=== PATIENT | female | born 1970 | race Caucasian/White ===

== ENCOUNTER 2017-06-26 12:17 | Outpatient (CLI) | payer OTHER ==
[2017-06-26 13:31] LABS: #Basophils 0.1 thou/uL (0.0-0.2); #Eosinphils 0.2 thou/uL (0.0-0.7); #Lymphocytes 2.6 thou/uL (1.20-3.40); #Monocytes 0.4 thou/uL (0.11-0.59); #Neutrophils 3.4 thou/uL (1.40-6.50); %Eosinophils 2.7 % (0.0-10.0); %Monocytes 5.9 % (0.0-10.0); Hematocrit 40.8 % (36.0-47.0); Mean Platelet Volume 6.2 fL (7.4-10.4); Red Blood Cell (RBC) Count 4.38 mill/uL (4.20-5.40); White Blood Cell (WBC) Count 6.5 thou/uL (4.8-10.8)
[2017-06-26 13:47] LABS: Hemoglobin A1c 4.9 % (4.0-6.0)
[2017-06-26 13:56] LABS: Anion Gap 10 mmol/L (10-20); BUN (Urea Nitrogen) 11 mg/dL (7.0-18.7); Calc. Creatinine Clearance 0 mL/min (70-130); Calcium 9.1 mg/dL (7.8-10.44); Carbon Dioxide 32 mmol/L (22-29); Chloride 104 mmol/L (98-107); Estimated GFR-MDRD 88
== END 2017-06-26 12:18 | disposition home or self-care (01) ==
LOC: LABBT 12:17
PROVIDERS: ATTEND Specialist
DX: Z01.812 Encounter for preprocedural laboratory examination (principal); N61.1 Abscess of the breast and nipple
CPT/HCPCS: 80048; 83036; 85025

== ENCOUNTER 2017-06-29 09:22 | Day surgery (SDC) | payer OTHER ==
[2017-06-26 12:42] VITALS: BMI 26.9
[~2017-06-29 09:22] MED LIST: Dexamethasone 20 MG/5 ML VIAL ONE; Lidocaine 1% PF 5 ML VIAL ONE; Ondansetron HCl/PF 4 MG/2 ML Vial ONE; Propofol 200 MG/20 ML VIAL ONE
[2017-06-29] MEDS ORDERED: CEFAZOLIN/Water 2 GM/20 ML SYRINGE ONE (09:47)
[2017-06-29] MEDS ORDERED: Ketorolac Tromethamine 30 MG/ML VIAL ONE (09:47)
[2017-06-29] MEDS ORDERED: Midazolam HCl 2 mg/2 ml Vial ONE ×2 (10:56→11:12)
[2017-06-29] MEDS ORDERED: Fentanyl 100 MCG/2 ML VIAL ONE (11:12)
[2017-06-29] MEDS ORDERED: Bupivacaine 0.25% HCL 30 ML VIAL ONE (11:38)
[2017-06-29] MEDS ORDERED: Bacitracin Zinc Ointment 30 gm TUBE ONE (11:54)
--- NOTE | 2017-06-29 13:59 | OP ---
DATE OF PROCEDURE: 06/29/2017 PREOPERATIVE DIAGNOSIS: Chronically infected left breast mass. POSTOPERATIVE DIAGNOSIS: Chronically infected left breast mass. OPERATION PERFORMED: Excision of chronically infected left breast mass. SURGEON: Anastacio Malik M.D. ANESTHESIA: General with laryngeal mask airway. INDICATIONS: The patient is a 47-year-old white female. She presents with a nearly 1 year history o f recurrent problems with infection associated with a left subareolar mass. This has been aspirated and drained on at least 2 prior occasions. It recently became infected again and ruptured on its own . There i still an area of erythema with induration and tenderness. This is at about the 9 o'clock radian of the left breast in the subareolar location. She is taken to the operating room at this [facility] for excision. OPERATIVE PROCEDURE IN DETAIL: Informed consent was obtained. The patient was taken to the operatin g room where general anesthesia was obtained with the patient in supine position. Left breast was pr epped with ChloraPrep and draped in sterile fashion. Local anesthetic was infiltrated using 0.25% Ma rcaine with epinephrine. An elliptical incision was created in a radial fashion at the 9 o'clock rad johnathan of the areola. This incorporated the center of the mass from which the drainage had come. The t otal length was about 2 cm. Dissection was carried through skin and subcutaneous tissue. An attempt was made to dissect through normal nonindurated tissue planes. To the medial aspect the dissection I encountered a scant amount of purulent material within some indurated tissue. This was further exc ised. The specimen was passed off the field as 2 separate specimens. Meticulous hemostasis was obta ined with electrocautery. Additional local anesthetic was infiltrated using 0.25% Marcaine with epin ephrine. The wound was closed in layers using 3-0 Vicryl to approximate the deep layers with a runni ng suture of 4-0 Prolene to approximate the skin edges. Antibiotic ointment and dry gauze dressing w as applied. There were no complications. The patient tolerated the procedure well and was taken to recovery room in stable condition.
== END 2017-06-29 15:33 | disposition home or self-care (01) ==
LOC: SDC 09:22
PROVIDERS: ATTEND Specialist
PROC: 0HBU0ZX Excision of Left Breast, Open Approach, Diagnostic (ICD-10-PCS; principal; 2017-06-29)
DX: N63.42 Unspecified lump in left breast, subareolar (principal); F32.9 Major depressive disorder, single episode, unspecified; M10.9 Gout, unspecified; M13.80 Other specified arthritis, unspecified site; F17.200 Nicotine dependence, unspecified, uncomplicated; Z79.899 Other long term (current) drug therapy; Z88.5 Allergy status to narcotic agent; Z98.890 Other specified postprocedural states
CPT/HCPCS: 88305; J0131; J1100; J1885; J2001; J2250; J2405; J2704; J3010; S0020

== ENCOUNTER 2023-12-03 10:36 | Outpatient (CLI) | payer OTHER ==
[2023-12-03 12:38] LABS: #Basophils 0.03 10x3/uL (0.0-0.2); #Eosinphils 0.16 10x3/uL (0.0-0.5); #Monocytes 0.29 10x3/uL (0.0-1.1); #Neutrophils 2.54 10x3/uL (1.5-8.4); %Basophils 0.6 % (0.0-2.0); %Eosinophils 3.1 % (0.0-6.0); %Lymphocytes 40.6 % (18.0-47.0); %Monocytes 5.7 % (0.0-10.0); Hematocrit 43.2 % (34.9-44.5); Hemoglobin 14.7 g/dL (12.0-15.5); Mean Corpuscular Hemoglobin 30.5 pg (27.0-33.0); Mean Corpuscular Volume 89.6 fl (81.6-98.3); Platelet Count 327 10x3/uL (150-450); RBC Distribution Width 12.2 % (11.5-14.5); Red Blood Cell (RBC) Count 4.82 10x6/uL (3.90-5.03); White Blood Cell (WBC) Count 5.1 10x3/uL (3.5-10.5)
[2023-12-03 13:17] LABS: ALT (SGPT) 23 U/L (8-55); AST (SGOT) 20 U/L (5-34); Albumin 4.4 g/dL (3.5-5.0); Alkaline Phosphatase 62 U/L (40-110); Anion Gap 16 mmol/L (10-20); BUN (Urea Nitrogen) 12 mg/dL (9.8-20.1); Bilirubin, Total 0.4 mg/dL (0.2-1.2); Calc. Creatinine Clearance 0 mL/min (70-130); Calcium 10.1 mg/dL (7.8-10.44); Carbon Dioxide 26 mmol/L (22-29); Chloride 104 mmol/L (98-107); Estimated GFR 101; Globulin 2.6 g/dL (2.4-3.5); Glucose 73 mg/dL (70-105); Potassium 4.5 mmol/L (3.5-5.1); Sodium 141 mmol/L (136-145)
== END 2023-12-03 10:37 | disposition home or self-care (01) ==
LOC: LABBT 10:36
PROVIDERS: ATTEND Surgery
DX: Z01.818 Encounter for other preprocedural examination (principal); N61.1 Abscess of the breast and nipple
CPT/HCPCS: 80053; 85025; 93005; 93010